=== PATIENT | female | born 1930 | race Caucasian/White ===

== ENCOUNTER 2019-01-11 09:15 | Day surgery (SDC) | payer MEDICARE, MEDICAID ==
[~2019-01-11] VITALS: Ht 162.6 cm; Wt 62.6 kg
[~2019-01-11 09:15] MED LIST: AMLO10TA80 PO; ARIP5TAB19 PO; ASPI-986 PO; BENJ PO; BISA10SU8 RC; CRAN500T PO; CYAN250T PO; DOCU-138 PO; ENAL20TA PO; HYDR-4001 PO; LEVO100T9 PO; LORA0.5T2 PO; METO-396 PO; PANT40TA4 PO; PHENYLEPHRINE 2.5% OPHTH 15 DROP/ML BOTTLE RIGHTEYE NR; POLY15DR55 OP; TROPICAMIDE 1% OPHTH DROPS 15ML RIGHTEYE NR; VENL150C52 PO; XALAO EACHEYE
[2019-01-11 10:24] LABS: BASOPHILS % 0.7 % (0.0-2.0); EOSINOPHILS % 2.6 % (0.0-5.0); HEMATOCRIT. 39.1 % (36.0-48.0); HEMOGLOBIN. 12.7 g/dL (12.0-16.0); LYMPHOCYTES % 18.7 % (20.0-50.0); MEAN CORPUSCULAR HEMOGLOBIN 28.9 pg (28.0-32.0); MEAN CORPUSCULAR VOLUME 89.2 fL (81.0-99.0); MEAN PLATELET VOLUME 7.2 fl (7.4-10.4); MONOCYTES % 7.5 % (2.0-8.0); NEUTROPHILS % 70.5 % (40.0-76.0); PLATELET 192 x1000/uL (130-400); RED BLOOD CELL COUNT 4.39 mill/uL (4.2-5.4); RED CELL DISTRIBUTION WIDTH 14.7 % (11.6-14.6)
[2019-01-11 10:31] LABS: CHLORIDE 104 mEq/L (98-107)
[2019-01-11] MEDS ORDERED: TOBRAMYCIN/DEXAMETHASONE OPTH DROPS 2.5ML OP ONE (10:45)
[2019-01-11] MEDS ORDERED: BALANCED SALT IRRIG SOLN COMB1 500ML OP ONE (10:45)
[2019-01-11] MEDS ORDERED: HOMATROPINE HBR 5% OPHTH 5ML ONE (11:04)
[2019-01-11] MEDS ORDERED: HYALURONATE SODIUM 14 MG/ML 0.85ML SYRINGE IO ONE (11:05)
[2019-01-11] MEDS ORDERED: METHYLPREDNISOLONE SOD SUCC 40 MG/ML VIAL ONE (11:05)
[2019-01-11] MEDS ORDERED: LACTATED RINGERS 1,000 ML IV SCH (11:40)
[2019-01-11] MEDS ORDERED: FENTANYL CITRATE/PF 50MCG/ML 2ML VIAL ONE (12:11)
[2019-01-11] MEDS ORDERED: PROPOFOL 200MG/20ML VIAL IV ONE (12:11)
[2019-01-11] MEDS ORDERED: MIDAZOLAM HCL 2 MG/2 ML VIAL ONE (12:11)
[2019-01-11] MEDS ORDERED: LIDOCAINE HCL/PF 1% 10 MG/ML 5ML VIAL ONE (12:18)
[2019-01-11] MEDS ORDERED: METOPROLOL TARTRATE 5MG/5ML VIAL IV ONE (13:08)
[2019-01-11] MEDS ORDERED: KETOROLAC 30MG/ML VIAL ONE (13:22)
[2019-01-11] MEDS ORDERED: TROPICAMIDE 1% OPHTH DROPS 15ML ONE (13:49)
[2019-01-11] MEDS ORDERED: PHENYLEPHRINE HCL 2.5% OPHTH DROPS 2ML ONE (13:49)
[2019-01-11] MEDS ORDERED: ACETYLCHOLINE CHLORIDE INTRAOCULAR SOLUTION 1:100 ELECTROLYTE DILUENT IO ONE (13:49)
[2019-01-11] MEDS ORDERED: BALANCED SALT IRRIG SOLN 15ML ONE (13:49)
[2019-01-11] MEDS ORDERED: LIDOCAINE HCL 2%/EPINEPHRINE 1:100,000 20 ML VIAL INFIL ONE (13:49)
[2019-01-11] MEDS ORDERED: BUPIVACAINE HCL/PF 0.75% (7.5MG/ML) 10ML ONE (13:49)
[2019-01-11] MEDS ORDERED: TETRACAINE 0.5% OPHTH DROPS 4ML ONE (13:49)
== END 2019-01-11 15:30 | disposition home or self-care (01) ==
LOC: OR 09:15
PROVIDERS: ATTEND Ophthalmology
DX: H25.89 Other age-related cataract (principal); I25.10 Atherosclerotic heart disease of native coronary artery without angina pectoris; I10 Essential (primary) hypertension; E03.9 Hypothyroidism, unspecified; I25.2 Old myocardial infarction; F31.9 Bipolar disorder, unspecified; Z85.3 Personal history of malignant neoplasm of breast; Z85.819 Personal history of malignant neoplasm of unspecified site of lip, oral cavity, and pharynx; Z96.641 Presence of right artificial hip joint; Z96.652 Presence of left artificial knee joint; Z87.891 Personal history of nicotine dependence; K21.9 Gastro-esophageal reflux disease without esophagitis
CPT/HCPCS: 36415; 66984; 80048; 85025; 93005; J1885; J2250; J2704; J3490; V2632; J2920; J3010